=== PATIENT | female | born 1945 | race African-American/Black ===

== ENCOUNTER 2017-08-28 13:25 | Emergency (ER) | payer OTHER ==
[~2017-08-28] VITALS: Ht 162.6 cm; Wt 50.0 kg
[2017-08-28] MEDS ORDERED: SODIUM CHLORIDE 0.9% 500 ML IV ONE (17:16)
[2017-08-28 18:03] LABS: BASOPHILS % 0.2 % (0.0-2.0); EOSINOPHILS % 0.5 % (0.0-5.0); HEMATOCRIT. 39.5 % (36.0-48.0); HEMOGLOBIN. 13.2 g/dL (12.0-16.0); LYMPHOCYTES % 21.7 % (20.0-50.0); MEAN CORPUSCULAR HEMOGLOBIN 29.2 pg (28.0-32.0); MEAN CORPUSCULAR VOLUME 87.8 fL (81.0-99.0); MEAN PLATELET VOLUME 8.5 fl (7.4-10.4); MONOCYTES % 7.6 % (2.0-8.0); PLATELET 256 x1000/uL (130-400); RED BLOOD CELL COUNT 4.51 mill/uL (4.2-5.4); RED CELL DISTRIBUTION WIDTH 15.7 % (11.6-14.6)
[2017-08-28 18:04] LABS: CHLORIDE 109 mEq/L (98-107)
[2017-08-28 18:53] VITALS: BP 142/90
== END 2017-08-28 20:40 | disposition home or self-care (01) ==
LOC: ER 13:49
DX: R19.7 Diarrhea, unspecified (principal); I10 Essential (primary) hypertension; F03.90 Unspecified dementia, unspecified severity, without behavioral disturbance, psychotic disturbance, mood disturbance, and anxiety
CPT/HCPCS: 36415; 80053; 85025; 96360; 99284; J7030; J7040